=== PATIENT | female | born 1940 | race African-American/Black ===

== ENCOUNTER → 2018-04-13 | Outpatient (CLI) | payer MEDICARE, OTHER ==
[2018-04-13 13:43] LABS: ABSOLUTE EOSINOPHILS # (AUTO) 0.1 10^3/uL (0.0-0.6); ABSOLUTE LYMPHOCYTES (AUTO) 2.7 10^3/uL (0.5-4.7); ABSOLUTE MONOCYTES (AUTO) 0.7 10^3/uL (0.1-1.4); BASOPHILS % (AUTO) 0.3 % (0-2); EOSINOPHILS % (AUTO) 1.7 % (0-6); HEMATOCRIT 35.5 % (36.0-47.0); HEMOGLOBIN 11.6 g/dL (12.0-15.5); MEAN CORPUSCULAR HEMOGLOBIN 28.2 pg (27.0-33.4); MEAN CORPUSCULAR HGB CONC 32.7 g/dL (32.0-36.0); MEAN CORPUSCULAR VOLUME 86 fl (80-97); PLATELET COUNT 108 10^3/uL (150-450); RED BLOOD COUNT 4.11 10^6/uL (3.72-5.28); RED CELL DISTRIBUTION WIDTH 14.1 % (11.5-14.0); TOTAL CELLS COUNTED % (AUTO) 100 %; WHITE BLOOD COUNT 6.5 10^3/uL (4.0-10.5)
[2018-04-13 13:53] LABS: ALANINE AMINOTRANSFERASE 13 U/L (9-52); ALBUMIN 4.1 g/dL (3.5-5.0); ALKALINE PHOSPHATASE 76 U/L (38-126); ANION GAP 12 (5-19); ASPARTATE AMINO TRANSFERASE 18 U/L (14-36); BILIRUBIN,DIRECT 0.3 mg/dL (0.0-0.4); BILIRUBIN,TOTAL 0.6 mg/dL (0.2-1.3); BLOOD UREA NITROGEN 17 mg/dL (7-20); CALCIUM 9.6 mg/dL (8.4-10.2); CARBON DIOXIDE 27 mmol/L (22-30); CHLORIDE 105 mmol/L (98-107); GLUCOSE 81 mg/dL (75-110); POTASSIUM 4.1 mmol/L (3.6-5.0); SODIUM 144.1 mmol/L (137-145); TOTAL PROTEIN 7.5 g/dL (6.3-8.2)
== END ==
LOC: OD 11:44
PROVIDERS: ATTEND Internal Medicine Geriatric Medicine
DX: I10 Essential (primary) hypertension (principal)
CPT/HCPCS: 36415; 80053; 85025

== ENCOUNTER 2018-07-10 14:06 | Emergency (ER) | payer MEDICARE, OTHER ==
--- NOTE | 2018-07-10 14:32 | ER Document Report ---
ED Medical Screen (RME) - General Chief Complaint: Urinary Frequency Stated Complaint: ABDOMINAL,BACK PAIN Time Seen by Provider: 07/10/18 14:31 Primary Care Provider: OXANA SNIDER MD [Primary Care Provider] - Follow up as needed Mode of Arrival: Wheelchair Information source: Patient TRAVEL OUTSIDE OF THE [place] IN LAST 30 DAYS: No - HPI Patient complains to provider of: lower abd pain Onset: Yesterday - pt. with onset of low abd/low back pain for t he past 2 days - Related Data Allergies/Adverse Reactions: codeine [Codeine] Allergy (Unknown, Verified 12/05/14 14:53) Facial swelling Penicillins Allergy (Unknown, Verified 12/05/14 14:53) Facial swelling sulfamethoxazole [From Septra] Allergy (Unknown, Verified 12/05/14 14:53) lips swell trimethoprim [From Septra] Allergy (Unknown, Verified 12/05/14 14:53) lips swell ciprofloxacin [From Cipro] Allergy (Verified 12/05/14 14:53) ciprofloxacin HCl [From Cipro] Allergy (Verified 12/05/14 14:53) Past Medical History - Past Medical History Cardiac Medical History: Reports: Hx Hypercholesterolemia, Hx Hypertension Denies: Hx Congestive Heart Failure, Hx Coronary Artery Disease, Hx Heart Attack Pulmonary Medical History: Reports: Hx Asthma, Hx Bronchitis - long time ago, Hx Pneumonia Denies: Hx COPD, Hx Tuberculosis Neurological Medical History: Reports: Hx Cerebrovascular Accident - august 2012/weakness on left side-uses cane and walker, Hx Migraine - chronic migraine headache. Denies: Hx Seizures Endocrine Medical History: Reports: Hx Diabetes Mellitus Type 2 GI Medical History: Reports: Hx Gastroesophageal Reflux Disease. Denies: Hx Hepatitis, Hx Hiatal Hernia, Hx Ulcer Musculoskeltal Medical History: Reports Hx Arthritis Psychiatric Medical History: Reports: Hx Dementia - mild, Hx Depression Infectious Medical History: Denies: Hx Hepatitis Past Surgical History: Reports: Hx Tubal Ligation. Denies: Hx Hysterectomy, Hx Mastectomy, Hx Open Heart Surgery, Hx Pacemaker - Immunizations Hx Diphtheria, Pertussis, Tetanus Vaccination: No Physical Exam - Vital signs Vitals: Temp Pulse Resp BP Pulse Ox 99.8 F 62 16 148/57 H 99 07/10/18 14:15 07/10/18 14:15 07/10/18 14:15 07/10/18 14:15 07/10/18 14:15 Course - Vital Signs Vital signs: Temp Pulse Resp BP Pulse Ox 99.8 F 62 16 148/57 H 99 07/10/18 14:15 07/10/18 14:15 07/10/18 14:15 07/10/18 14:15 07/10/18 14:15 Doctor's Discharge - Discharge Referrals: OXANA SNIDER MD [Primary Care Provider] - Follow up as needed
[2018-07-10 15:30] LABS: ABSOLUTE BASOPHILS # (AUTO) 0.1 10^3/uL (0.0-0.2); ABSOLUTE EOSINOPHILS # (AUTO) 0.2 10^3/uL (0.0-0.6); ABSOLUTE LYMPHOCYTES (AUTO) 1.9 10^3/uL (0.5-4.7); ABSOLUTE MONOCYTES (AUTO) 0.8 10^3/uL (0.1-1.4); ABSOLUTE NEUT (AUTO) 4.1 10^3/uL (1.7-8.2); BASOPHILS % (AUTO) 1.3 % (0-2); EOSINOPHILS % (AUTO) 3.1 % (0-6); HEMATOCRIT 34.6 % (36.0-47.0); HEMOGLOBIN 11.6 g/dL (12.0-15.5); LYMPHOCYTES % (AUTO) 26.8 % (13-45); MEAN CORPUSCULAR HEMOGLOBIN 28.2 pg (27.0-33.4); MEAN CORPUSCULAR HGB CONC 33.4 g/dL (32.0-36.0); MEAN CORPUSCULAR VOLUME 84 fl (80-97); MONOCYTES % (AUTO) 11.3 % (3-13); PLATELET COUNT 151 10^3/uL (150-450); SEGMENTED NEUTROPHILS % (AUTO) 57.5 % (42-78); TOTAL CELLS COUNTED % (AUTO) 100 %; WHITE BLOOD COUNT 7.1 10^3/uL (4.0-10.5)
--- NOTE | 2018-07-10 15:44 | ER Document Report ---
ED General - General Chief Complaint: Urinary Frequency Stated Complaint: ABDOMINAL,BACK PAIN Time Seen by Provider: 07/10/18 14:31 Primary Care Provider: OXANA SNIDER MD [Primary Care Provider] - Follow up as needed Mode of Arrival: Wheelchair Notes: 78-year-old female with history of CVA in 2011, diabetes, hypertension, hyperlipidemia presents to the emergency department for 1 day of suprapubic pain and lower back pain. She states symptoms got worse today. She complains of urinary frequency and urgency. She states that her bowel movements were "hard ". She denies fevers or chills, she denies nausea or vomiting, she denies headaches or weakness. She denies seeing any blood in her urine. No altered mental status. No history of abdominal surgeries. TRAVEL OUTSIDE OF THE [place] IN LAST 30 DAYS: No - Related Data Allergies/Adverse Reactions: codeine [Codeine] Allergy (Unknown, Verified 12/05/14 14:53) Facial swelling Penicillins Allergy (Unknown, Verified 12/05/14 14:53) Facial swelling sulfamethoxazole [From Septra] Allergy (Unknown, Verified 12/05/14 14:53) lips swell trimethoprim [From Septra] Allergy (Unknown, Verified 12/05/14 14:53) lips swell ciprofloxacin [From Cipro] Allergy (Verified 12/05/14 14:53) ciprofloxacin HCl [From Cipro] Allergy (Verified 12/05/14 14:53) Past Medical History - General Information source: Patient - Social History Smoking Status: Unknown if Ever Smoked Chew tobacco use (# tins/day): No Frequency of alcohol use: None Drug Abuse: None Family History: Reviewed & Not Pertinent Patient has suicidal ideation: No Patient has homicidal ideation: No - Past Medical History Cardiac Medical History: Reports: Hx Hypercholesterolemia, Hx Hypertension Denies: Hx Congestive Heart Failure, Hx Coronary Artery Disease, Hx Heart Attack Pulmonary Medical History: Reports: Hx Asthma, Hx Bronchitis - long time ago, Hx Pneumonia Denies: Hx COPD, Hx Tuberculosis Neurological Medical History: Reports: Hx Cerebrovascular Accident - august 2012/weakness on left side-uses cane and walker, Hx Migraine - chronic migraine headache. Denies: Hx Seizures Endocrine Medical History: Reports: Hx Diabetes Mellitus Type 2 Renal/ Medical History: Denies: Hx Peritoneal Dialysis GI Medical History: Reports: Hx Gastroesophageal Reflux Disease. Denies: Hx Hepatitis, Hx Hiatal Hernia, Hx Ulcer Musculoskeletal Medical History: Reports Hx Arthritis Psychiatric Medical History: Reports: Hx Dementia - mild, Hx Depression Infectious Medical History: Denies: Hx Hepatitis Past Surgical History: Reports: Hx Tubal Ligation. Denies: Hx Hysterectomy, Hx Mastectomy, Hx Open Heart Surgery, Hx Pacemaker - Immunizations Hx Diphtheria, Pertussis, Tetanus Vaccination: No Hx Pneumococcal Vaccination: 06/05/13 Review of Systems - Review of Systems Constitutional: See HPI EENT: See HPI Cardiovascular: See HPI Respiratory: See HPI Gastrointestinal: See HPI Genitourinary: See HPI Female Genitourinary: No symptoms reported Musculoskeletal: Back pain Skin: No symptoms reported Hematologic/Lymphatic: No symptoms reported Neurological/Psychological: See HPI Physical Exam - Vital signs Vitals: Temp Pulse Resp BP Pulse Ox 99.8 F 62 16 148/57 H 99 07/10/18 14:15 07/10/18 14:15 07/10/18 14:15 07/10/18 14:15 07/10/18 14:15 - Notes Notes: PHYSICAL EXAMINATION: Reviewed vital signs and charting by RN GENERAL: Alert, interacts well. No acute distress. HEAD: Normocephalic, atraumatic. EYES: Pupils equal, round. Extraocular movements intact. ENT: Oral mucosa moist. NECK: Trachea midline. LUNGS: Clear to auscultation bilaterally, no wheezes, rales, or rhonchi. No respiratory distress. HEART: Regular rate and rhythm. No murmur ABDOMEN: soft, suprapubic tenderness. Non-distended. Bowel sounds present in all 4 quadrants. no McBurney's point tenderness, no Alan sign. BACK: No CVAT NEUROLOGICAL: Normal speech. PSYCH: Normal affect, normal mood. SKIN: Warm, dry, normal turgor. No rashes or lesions noted. Course - Re-evaluation Re-evalutation: 07/10/18 15:44 Overall well-appearing afebrile 78-year-old female presents with suprapubic pain. Urine and lab work collected and pending. No CVAT. 07/10/18 16:35 Urine positive for urinary tract infection. No leukocytosis no evidence of systemic infection. Most likely a simple uncomplicated cystitis. She does have allergies to ciprofloxacin and penicillins which was reported as facial swelling. I will give her Macrobid 100 mg 2 times per day for 5 days. I will give her a dose here. Patient is safe and stable for discharge. - Vital Signs Vital signs: Temp Pulse Resp BP Pulse Ox 99.8 F 62 16 148/57 H 99 07/10/18 14:15 07/10/18 14:15 07/10/18 14:15 07/10/18 14:15 07/10/18 14:15 - Laboratory Result Diagrams: 07/10/18 15:05 07/10/18 15:05 Laboratory results interpreted by me: 07/10/18 07/10/18 15:05 15:05 Hgb 11.6 L Hct 34.6 L Urine Blood SMALL H Ur Leukocyte Esterase LARGE H Discharge - Discharge Clinical Impression: Urinary tract infection Qualifiers: Urinary tract infection type: acute cystitis Hematuria presence: with hematuria Qualified Code(s): N30.01 - Acute cystitis with hematuria Condition: Good Disposition: HOME, SELF-CARE Instructions: Nitrofurantoin ([facility]), Urinary Tract Infection ([facility]) Additional Instructions: You are seen in the emergency department this afternoon for urinary tract infe ction. Because you have allergies to multiple medications I am putting you on a medication called Macrobid. You will take it 2 times per day for 5 days, once in the morning once in the evening. If you have any signs of allergic reaction please immediately stop taking the medication and come to the emergency department. Please take the medication until it is complete. If you start developing any worsening abdominal pain, develop high fever, pass out, or have any other concerns please merely return to the emergency department. Prescriptions: Nitrofurantoin Macrocrystal [Macrodantin] 100 mg PO BID 5 Days #10 capsule Referrals: OXANA SNIDER MD [Primary Care Provider] - Follow up as needed
[2018-07-10 15:50] LABS: ALANINE AMINOTRANSFERASE 15 U/L (9-52); ALBUMIN 4.2 g/dL (3.5-5.0); ALKALINE PHOSPHATASE 84 U/L (38-126); ANION GAP 10 (5-19); ASPARTATE AMINO TRANSFERASE 19 U/L (14-36); BILIRUBIN,DIRECT 0.2 mg/dL (0.0-0.4); BILIRUBIN,TOTAL 0.6 mg/dL (0.2-1.3); BLOOD UREA NITROGEN 16 mg/dL (7-20); CALCIUM 9.9 mg/dL (8.4-10.2); CARBON DIOXIDE 29 mmol/L (22-30); CHLORIDE 105 mmol/L (98-107); GLUCOSE 89 mg/dL (75-110); POTASSIUM 4.6 mmol/L (3.6-5.0); SODIUM 143.7 mmol/L (137-145); TOTAL PROTEIN 7.7 g/dL (6.3-8.2)
[2018-07-10 15:55] LABS: APPEARANCE,URINE CLOUDY; BILIRUBIN,URINE NEGATIVE (NEGATIVE); COLOR,URINE YELLOW; GLUCOSE, URINE NEGATIVE (NEGATIVE); KETONES,URINE NEGATIVE (NEGATIVE); LEUKOCYTE ESTERASE,URINE LARGE (NEGATIVE); NITRITE,URINE NEGATIVE (NEGATIVE); PROTEIN,URINE NEGATIVE (NEGATIVE); URINE SPECIFIC GRAVITY 1.016; UROBILINOGEN,URINE NEGATIVE mg/dL (<2.0)
[2018-07-10] MEDS ORDERED: CEPHALEXIN 500 MG CAPSULE PO ONE (16:32)
[2018-07-10] MEDS ORDERED: NITROFURANTOIN MONOHYD/M-CRYST 100 MG CAPSULE PO ONE (16:34)
[2018-07-10 16:50] VITALS: BP 140/93
== END 2018-07-10 16:50 | disposition home or self-care (01) ==
LOC: ER 14:06
DX: N30.01 Acute cystitis with hematuria (principal); E11.9 Type 2 diabetes mellitus without complications; I10 Essential (primary) hypertension; R19.4 Change in bowel habit; J45.909 Unspecified asthma, uncomplicated; Z88.5 Allergy status to narcotic agent; Z88.0 Allergy status to penicillin; Z88.1 Allergy status to other antibiotic agents
CPT/HCPCS: 99283; 36415; 85025; 80053; 81001; A9270; J8499

== ENCOUNTER 2019-11-24 09:46 | Emergency (ER) | payer MEDICARE, OTHER ==
--- NOTE | 2019-11-24 10:25 | ER Document Report ---
ED Medical Screen (RME) - General Chief Complaint: Hip Pain Stated Complaint: HIP PAIN/JOINT PAIN Time Seen by Provider: 11/24/19 10:19 Primary Care Provider: OXANA SNIDER MD [Primary Care Provider] - Follow up as needed Mode of Arrival: Medic Information source: Patient Notes: 79-year-old female presented to ED for complaint of when the clock went off for her to get up this morning she could not get up. She states she usually gets up goes to the bathroom takes care of herself. She states she does have a history of diabetes and a stroke but is not having any new stroke symptoms at this time she just could not get up and could not stand on her hip and she is having severe pain in her right hip. She states she did not fall she did not injure her hip she just cannot get up. I have greeted and performed a rapid initial assessment of this patient. A comprehensive ED assessment and evaluation of the patient, analysis of test results and completion of medical decision making process will be conducted by an additional ED providers. TRAVEL OUTSIDE OF THE [place] IN LAST 30 DAYS: No - Related Data Allergies/Adverse Reactions: codeine [Codeine] Allergy (Unknown, Verified 12/05/14 14:53) Facial swelling Penicillins Allergy (Unknown, Verified 12/05/14 14:53) Facial swelling sulfamethoxazole [From Septra] Allergy (Unknown, Verified 12/05/14 14:53) lips swell trimethoprim [From Septra] Allergy (Unknown, Verified 12/05/14 14:53) lips swell ciprofloxacin [From Cipro] Allergy (Verified 12/05/14 14:53) ciprofloxacin HCl [From Cipro] Allergy (Verified 12/05/14 14:53) Past Medical History - Past Medical History Cardiac Medical History: Reports: Hx Hypercholesterolemia, Hx Hypertension Denies: Hx Congestive Heart Failure, Hx Coronary Artery Disease, Hx Heart Attack Pulmonary Medical History: Reports: Hx Asthma, Hx Bronchitis - long time ago, Hx Pneumonia Denies: Hx COPD, Hx Tuberculosis Neurological Medical History: Reports: Hx Cerebrovascular Accident - august 2012/weakness on left side-uses cane and walker, Hx Migraine - chronic migraine headache. Denies: Hx Seizures Endocrine Medical History: Reports: Hx Diabetes Mellitus Type 2 Renal/ Medical History: Denies: Hx Peritoneal Dialysis GI Medical History: Reports: Hx Gastroesophageal Reflux Disease. Denies: Hx Hep atitis, Hx Hiatal Hernia, Hx Ulcer Musculoskeltal Medical History: Reports Hx Arthritis Psychiatric Medical History: Reports: Hx Dementia - mild, Hx Depression Infectious Medical History: Denies: Hx Hepatitis Past Surgical History: Reports: Hx Tubal Ligation. Denies: Hx Hysterectomy, Hx Mastectomy, Hx Open Heart Surgery, Hx Pacemaker - Immunizations Hx Diphtheria, Pertussis, Tetanus Vaccination: No Physical Exam - Vital signs Vitals: Temp Pulse Resp BP Pulse Ox 98.5 F 50 L 16 132/51 H 100 11/24/19 10:00 11/24/19 10:00 11/24/19 10:00 11/24/19 10:00 11/24/19 10:00 Course - Vital Signs Vital signs: Temp Pulse Resp BP Pulse Ox 98.5 F 50 L 16 132/51 H 100 11/24/19 10:00 11/24/19 10:00 11/24/19 10:00 11/24/19 10:00 11/24/19 10:00 Doctor's Discharge - Discharge Referrals: OXANA SNIDER MD [Primary Care Provider] - Follow up as needed
[2019-11-24 10:42] LABS: ABSOLUTE EOSINOPHILS # (AUTO) 0.1 10^3/uL (0.0-0.6); ABSOLUTE LYMPHOCYTES (AUTO) 1.7 10^3/uL (0.5-4.7); ABSOLUTE MONOCYTES (AUTO) 0.5 10^3/uL (0.1-1.4); BASOPHILS % (AUTO) 0.5 % (0-2); EOSINOPHILS % (AUTO) 2.2 % (0-6); HEMATOCRIT 36.9 % (36.0-47.0); HEMOGLOBIN 12.1 g/dL (12.0-15.5); LYMPHOCYTES % (AUTO) 39.8 % (13-45); MEAN CORPUSCULAR HEMOGLOBIN 27.2 pg (27.0-33.4); MEAN CORPUSCULAR HGB CONC 32.9 g/dL (32.0-36.0); MEAN CORPUSCULAR VOLUME 83 fl (80-97); MONOCYTES % (AUTO) 11.5 % (3-13); PLATELET COUNT 126 10^3/uL (150-450); RED BLOOD COUNT 4.47 10^6/uL (3.72-5.28); RED CELL DISTRIBUTION WIDTH 13.9 % (11.5-14.0); TOTAL CELLS COUNTED % (AUTO) 100 %; WHITE BLOOD COUNT 4.3 10^3/uL (4.0-10.5)
[2019-11-24 11:13] LABS: ALBUMIN 4.2 g/dL (3.5-5.0); ALKALINE PHOSPHATASE 76 U/L (38-126); ANION GAP 6 (5-19); ASPARTATE AMINO TRANSFERASE 23 U/L (14-36); BILIRUBIN,TOTAL 0.6 mg/dL (0.2-1.3); BLOOD UREA NITROGEN 16 mg/dL (7-20); CALCIUM 9.6 mg/dL (8.4-10.2); CARBON DIOXIDE 29 mmol/L (22-30); CHLORIDE 104 mmol/L (98-107); GLUCOSE 120 mg/dL (75-110); POTASSIUM 4.7 mmol/L (3.6-5.0); TOTAL PROTEIN 7.6 g/dL (6.3-8.2)
--- NOTE | 2019-11-24 11:28 | RADIOLOGY REPORT (SQ) ---
EXAM DESCRIPTION: HIP RIGHT AP/LATERAL IMAGES COMPLETED DATE/TIME: 11/24/2019 11:06 am REASON FOR STUDY: pain could not get up this am COMPARISON: None. NUMBER OF VIEWS: Two views. TECHNIQUE: AP pelvis and additional frog-leg view of the right hip. LIMITATIONS: None. FINDINGS: MINERALIZATION: Normal. RIGHT HIP: No fracture or dislocation. No worrisome bone lesions. No contour deformity. Joint space narrowing with sclerosis and osteophytes. LEFT HIP: No fracture or dislocation. No worrisome bone lesions. Joint space narrowing with scleros is and osteophytes. PUBIS AND ISCHIUM: No fracture. PELVIS: No fracture. SACRUM: No fracture or dislocation. No worrisome bone lesions. LOWER LUMBAR SPINE: No fracture or dislocation. No worrisome bone lesions. No significant disc disea se. SOFT TISSUES: No findings. OTHER: No other significant finding. IMPRESSION: DEGENERATIVE CHANGES. NO APPARENT ACUTE FINDINGS. TECHNICAL DOCUMENTATION: JOB ID: [id number] 2010 [employer]- All Rights Reserved Reading location - IP/workstation name: [email or web address]
[2019-11-24] MEDS ORDERED: ONDANSETRON 4 MG TAB.RAPDIS PO ONE (12:58)
[2019-11-24] MEDS ORDERED: OXYCODONE-ACETAMINOPHEN 5-325 MG TABLET PO ONE (12:58)
--- NOTE | 2019-11-24 13:07 | ER Document Report ---
Entered by ZOEY CASE SCRIBE 11/24/19 1257 Acting as scribe for:PATRICIA LEVY MD ED Hip Pain/Injury - General Chief Complaint: Hip Pain Stated Complaint: HIP PAIN/JOINT PAIN Time Seen by Provider: 11/24/19 10:19 Primary Care Provider: OXANA SNIDER MD [Primary Care Provider] - Follow up as needed Mode of Arrival: Medic Information source: Patient Notes: This 79-year-old female patient presents to the emergency department today with complaints of right hip pain. Patient states she had no pain when she went to bed last night but when waking up this morning she was unable to get out of bed, stating that she was unable to get up secondary to pain. Patient states she normally ambulates at baseline with a walker and is able to function without much assistance. TRAVEL OUTSIDE OF THE [place] IN LAST 30 DAYS: No - Related Data Allergies/Adverse Reactions: codeine [Codeine] Allergy (Unknown, Verified 11/24/19 14:19) Facial swelling Penicillins Allergy (Unknown, Verified 11/24/19 14:19) Facial swelling sulfamethoxazole [From Septra] Allergy (Unknown, Verified 11/24/19 14:19) lips swell trimethoprim [From Septra] Allergy (Unknown, Verified 11/24/19 14:19) lips swell ciprofloxacin [From Cipro] Allergy (Verified 11/24/19 14:19) ciprofloxacin HCl [From Cipro] Allergy (Verified 11/24/19 14:19) Past Medical History - General Information source: Patient - Social History Smoking Status: Never Smoker Cigarette use (# per day): No Frequency of alcohol use: None Drug Abuse: None Lives with: Family Family History: Reviewed & Not Pertinent - Past Medical History Cardiac Medical History: Reports: Hx Hypercholesterolemia, Hx Hypertension Pulmonary Medical History: Reports: Hx Asthma, Hx Bronchitis - long time ago, Hx Pneumonia Neurological Medical History: Reports: Hx Cerebrovascular Accident - august 2012/weakness on left side-uses cane and walker, Hx Migraine - chronic migraine headache Endocrine Medical History: Reports: Hx Diabetes Mellitus Type 2 GI Medical History: Reports: Hx Gastroesophageal Reflux Disease Musculoskeletal Medical History: Reports Hx Arthritis Psychiatric Medical History: Reports: Hx Dementia - mild, Hx Depression Past Surgical History: Reports: Hx Tubal Ligation - Immunizations Hx Diphtheria, Pertussis, Tetanus Vaccination: No Hx Pneumococcal Vaccination: 06/05/13 Review of Systems - Review of Systems Constitutional: No symptoms reported EENT: No symptoms reported Cardiovascular: No symptoms reported Respiratory: No symptoms reported Gastrointestinal: No symptoms reported Genitourinary: No symptoms reported Female Genitourinary: No symptoms reported Musculoskeletal: See HPI, Joint pain - Right hip Skin: No symptoms reported Hematologic/Lymphatic: No symptoms reported Neurological/Psychological: No symptoms reported -: Yes All other systems reviewed and negative Physical Exam - Vital signs Vitals: Temp Pulse Resp BP Pulse Ox 98.5 F 50 L 16 132/51 H 100 11/24/19 10:00 11/24/19 10:00 11/24/19 10:00 11/24/19 10:00 11/24/19 10:00 - General General appearance: Appears well, Alert In distress: None - HEENT Head: Normocephalic, Atraumatic Eyes: Normal Pupils: PERRL - Respiratory Respiratory status: No respiratory distress Breath sounds: Normal - Cardiovascular Rhythm: Regular Heart sounds: Normal auscultation Murmur: No - Abdominal Inspection: Normal Bowel sounds: Normal Tenderness: Nontender - Back Back: Normal - Extremities General upper extremity: Normal inspection General lower extremity: Other - There is tenderness to palpate the muscles around the right hip particularly above the greater trochanter, posterior to the greater trochanter, and in the lateral and posterior lateral area just above the hip. External rotation of the thigh causes some increase in tenderness of the muscles around the hip while they are being palpated. - Neurological Neuro grossly intact: Yes - There is some mild dementia - Psychological Associated symptoms: Normal affect, Normal mood - Skin Skin Temperature: Warm Skin Moisture: Dry Skin Color: Normal Course - Re-evaluation Re-evalutation: 11/24/19 15:04 After the patient received the 2.5 mg dose of Percocet, she reported her pain was much better. She was able to stand, and walk with assistance to the bathroom on 2 occasions. She and her son feel comfortable going home with a p rescription for the same medication. I also found evidence of urinary tract infection so the urine will be cultured and she will be placed on Macrodantin. - Vital Signs Vital signs: Temp Pulse Resp BP Pulse Ox 97.8 F 48 L 16 136/53 H 100 11/24/19 13:55 11/24/19 13:55 11/24/19 13:55 11/24/19 13:55 11/24/19 13:55 - Laboratory Result Diagrams: 11/24/19 10:30 11/24/19 10:30 Laboratory results interpreted by me: 11/24/19 11/24/19 11/24/19 10:30 10:30 10:30 Plt Count 126 L ESR 39 H Glucose 120 H Urine Nitrite Ur Leukocyte Esterase 11/24/19 14:11 Plt Count ESR Glucose Urine Nitrite POSITIVE H Ur Leukocyte Esterase MODERATE H - Diagnostic Test Radiology reviewed: Image reviewed, Reports reviewed - Right hip x-ray shows significant degenerative changes in both hips but nothing acute. Discharge - Discharge Clinical Impression: Hip pain, right Urinary tract infection Qualifiers: Urinary tract infection type: site unspecified Hematuria presence: without hematuria Qualified Code(s): N39.0 - Urinary tract infection, site not specified Condition: Stable Disposition: HOME, SELF-CARE Additional Instructions: Urinary Tract Infection: Your evaluation indicates that you have a urinary tract infection. This is due to germs growing in the bladder. This is a common problem. This infection usually responds quickly to antibiotics. Your antibiotic should be taken exactly as prescribed. Drink plenty of fluids -- three to four quarts a day. Occasionally, a bladder anesthetic will be prescribed to help stop the feeling of urgency until the antibiotic has a chance to clear the infection. This may cause your urine to be dark orange. Certain urine infections require a culture. If the doctor obtained a culture, the results will be back in two days. You should call to see if a change in treatment is needed. A repeat urinalysis after you finish treatment is often recommended. The physician will let you know if further testing is required. Call the doctor if you develop fever, chills, flank pain, inability to urinate, or blood in the urine. Hip Pain: The pain around your right hip seems to be coming from the muscles around the hip, and not actually from the hip joint. The x-ray showed chronic degenerative changes of both hip joints, but no acute injury. Take the Macrodantin antibiotic as prescribed for urinary tract infection. Drink plenty of fluids. Take the pain medication as prescribed for your hip if needed. Be sure to get assistance when you get in and out of bed and use your walker. Follow-up with Dr. Snider Thursday if not improving. My discharge morning Prescriptions: Nitrofurantoin Monohyd/M-Cryst [Macrobid 100 mg Capsule] 100 mg PO BID #10 cap Oxycodone HCl/Acetaminophen [Percocet 2.5-325 Mg Tablet] 1 each PO ASDIR PRN #12 tablet PRN Reason: For Pain Referrals: OXANA SNIDER MD [Primary Care Provider] - Follow up as needed I personally performed the services described in the documentation, reviewed and edited the documentation which was dictated to the scribe in my presence, and it accurately records my words and actions.
[2019-11-24 13:56] VITALS: BP 136/53
[2019-11-24 14:29] LABS: APPEARANCE,URINE SLIGHTLY-CLOUDY; BILIRUBIN,URINE NEGATIVE (NEGATIVE); COLOR,URINE YELLOW; GLUCOSE, URINE NEGATIVE (NEGATIVE); KETONES,URINE NEGATIVE (NEGATIVE); LEUKOCYTE ESTERASE,URINE MODERATE (NEGATIVE); NITRITE,URINE POSITIVE (NEGATIVE); PROTEIN,URINE NEGATIVE (NEGATIVE); URINE SPECIFIC GRAVITY 1.013; UROBILINOGEN,URINE NEGATIVE mg/dL (<2.0)
== END 2019-11-24 15:09 | disposition home or self-care (01) ==
LOC: ER 09:46
DX: N39.0 Urinary tract infection, site not specified (principal); M25.551 Pain in right hip; E78.00 Pure hypercholesterolemia, unspecified; I10 Essential (primary) hypertension; E11.9 Type 2 diabetes mellitus without complications; Z88.6 Allergy status to analgesic agent; Z88.0 Allergy status to penicillin
CPT/HCPCS: 99283; 36415; 87086; 85025; 85652; 87088; 80053; 81001; 87186; 73502; A9270 ×2; S0119

== ENCOUNTER → 2020-06-06 | Outpatient (CLI) | payer MEDICARE, OTHER ==
--- NOTE | 2020-06-06 14:25 | RADIOLOGY REPORT (SQ) ---
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 TECHNIQUE: Dynamic and static dela cruz scale and color images acquired of the lower extremity arteries. Additional selected spectral images recorded. LIMITATIONS: None. FINDINGS: RIGHT LEG: INFLOW ARTERIES: Normal, no obstruction evident. FEMORAL ARTERIES:Triphasic waveforms. No velocity elevation to suggest focal stenosis. Normal color D oppler evaluation. No aneurysm. POPLITEAL ARTERY:Triphasic waveforms. No velocity elevation to suggest focal stenosis. Normal color D oppler evaluation. No aneurysm. PATENT TIBIOPERONEAL TRUNK AND 3 VESSEL RUNOFF: Yes, normal vessels. OTHER: No other significant finding. LEFT LEG: INFLOW ARTERIES: Normal, no obstruction evident. FEMORAL ARTERIES:Triphasic waveforms. No velocity elevation to suggest focal stenosis. Normal color D oppler evaluation. No aneurysm. POPLITEAL ARTERY:Triphasic waveforms. No velocity elevation to suggest focal stenosis. Normal color D oppler evaluation. No aneurysm. PATENT TIBIOPERONEAL TRUNK AND 3 VESSEL RUNOFF: Yes, normal vessels. OTHER: No other significant finding. IMPRESSION: NORMAL BILATERAL LOWER EXTREMITY ARTERIAL DOPPLER. TECHNICAL DOCUMENTATION: JOB ID: [id number] 2010 [employer]- All Rights Reserved Reading location - IP/workstation name: [email or web address]
== END ==
LOC: SP 08:08
PROVIDERS: ATTEND Nurse Practitioner Adult Health
DX: G90.8 Other disorders of autonomic nervous system (principal)
CPT/HCPCS: 93925